=== PATIENT | female | born 1970 | race Caucasian/White ===

== ENCOUNTER 2022-01-17 13:45 | Emergency (ER) | payer OTHER ==
[~2022-01-17] VITALS: Ht 172.7 cm; Wt 113.4 kg
--- NOTE | 2022-01-17 13:46 | NUR ---
Patient to ER bed 1 to gown for evaluation. Side rails up. Report given to EDWARDO SOLANO.
--- NOTE | 2022-01-17 13:46 | NUR ---
ER at bedside examining patient.
--- NOTE | 2022-01-17 13:50 | NUR ---
Pt JESSICA ARCHER from [facility]. Pt c/o having an excrutiating headache 10/10 that radiates to her occipital lobe region and feeling very weak. Pt able to move all extremities and minimal weakness noted on left extremities. 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 There is left sided extremity drift noted as well. All cranial nerves intact. Pt is A&Ox4. Skin intact. Connected pt to bacteriologist dairy and BP at 162/101, other vitals stable. Last known well time was 2am. Pt able to answer all questions appropiately. No aphasia noted. No slurred speech. Allergic to lisinopril. Has hx of Migraines, DM, HTN, Hyperlipidemia. Had a right foot surgery recently. Bed in lowest position. Safety checks in place.
--- NOTE | 2022-01-17 13:55 | NUR ---
Patient transported to radiology via gurney, accompanied by RN and cook chill technician.
--- NOTE | 2022-01-17 14:01 | NUR ---
bicycle repair technician at bedside.
--- NOTE | 2022-01-17 14:02 | NUR ---
Accucheck done and results were 143.
[2022-01-17 14:06] VITALS: BP_SYST 154
--- NOTE | 2022-01-17 14:10 | NUR ---
TELE NEURO ASSESSING PT.
--- NOTE | 2022-01-17 14:15 | NUR ---
X-Ray being done at bedside.
--- NOTE | 2022-01-17 14:20 | NUR ---
EKG being done at bedside.
[2022-01-17 14:24] LABS: BASOPHILS % (AUTO) 0.4 % (0.0-2.0); EOSINOPHILS # (AUTO) 0.1 K/uL (0.0-0.4); EOSINOPHILS % (AUTO) 1.9 % (0.0-4.0); HEMATOCRIT 39.5 % (36-48); HEMOGLOBIN 13.3 g/dL (12.0-16.0); LYMPHOCYTES # (AUTO) 1.7 K/uL (1.0-5.5); LYMPHOCYTES % (AUTO) 26.7 % (20.5-51.5); MEAN CORPUSCULAR HEMOGLOBIN 29 pg (27-31); MEAN CORPUSCULAR HGB CONC 34 % (32-36); MEAN CORPUSCULAR VOLUME 85 fL (79.0-98.0); MONOCYTES # (AUTO) 0.3 K/uL (0.0-1.0); MONOCYTES % (AUTO) 4.5 % (1.7-9.3); NEUTROPHILS # (AUTO) 4.1 K/uL (1.8-7.7); NEUTROPHILS % (AUTO) 66.5 % (40.0-70.0); PLATELET COUNT (AUTO) 207 K/uL (130-430); RED BLOOD CELL COUNT(AUTO) 4.67 MIL/uL (4.2-6.2); RED CELL DISTRIBUTION WIDTH 13.4 % (9.0-15.0); WHITE BLOOD COUNT (AUTO) 6.2 K/uL (4.8-10.8)
--- NOTE | 2022-01-17 14:27 | NUR ---
COVID SWAB SENT TO LAB.
--- NOTE | 2022-01-17 14:31 | NUR ---
Pt states she is unable to urinate at this time.
[2022-01-17] MEDS: ATORVASTATIN 20 MG TABLET PO ONE (14:35)
[2022-01-17] MEDS: ASPIRIN 325 MG TABLET PO ONE (14:35)
--- NOTE | 2022-01-17 14:36 | NUR ---
Pt given Lipitor and Aspirin PO. Pt able to swallow appropiately no difficulty noted.
[2022-01-17 14:40] LABS: ANION GAP 11 (5-15); CALCIUM 9.4 mg/dL (8.4-11.0); CHLORIDE 103 mmol/L (98-107); CREATININE 0.67 mg/dL (0.55-1.30); GLUCOSE 150 mg/dL (70-99); POTASSIUM 3.9 mmol/L (3.5-5.1); SODIUM SERUM 141 mmol/L (136-145); UREA NITROGEN, BLOOD 14 mg/dL (8-21)
[2022-01-17 14:41] LABS: PROTHROMBIN TIME 10.1 SECS (9.5-12.5)
[2022-01-17 14:46] LABS: GFR AFRICAN AMERICAN 120 mL/min (>90)
[2022-01-17 14:54] LABS: ALANINE AMINOTRANSFERASE 44 U/L (12-78); ALBUMIN 4.1 g/dL (3.4-4.8); ASPARTATE AMINOTRANSFERASE 19 U/L (10-37); PHOSPHORUS 3.1 mg/dL (2.7-4.5); TOTAL BILIRUBIN 0.3 mg/dL (0.0-1.0)
[2022-01-17] MEDS ORDERED: IOHEXOL 350 mgI/mL, 150 ML INFUS..BTL IV ONE (14:59)
--- NOTE | 2022-01-17 15:04 | NUR ---
Patient transported to radiology via gurney, accompanied by technical agronomist.
--- NOTE | 2022-01-17 15:12 | NUR ---
Returned from radiology, back to [facility].
--- NOTE | 2022-01-17 15:20 | NUR ---
Urine collected and sent to lab.
[2022-01-17 15:44] LABS: CHOLESTEROL 225 mg/dL (<200); HDL CHOLESTEROL 61 mg/dL (>55); LDL CHOLESTEROL 137 mg/dL (<100); TRIGLYCERIDES 103 mg/dL (30-150)
[2022-01-17 15:44] LABS: BILIRUBIN,URINE NEGATIVE (NEGATIVE); BLOOD, URINE NEGATIVE (NEGATIVE); CLARITY/URINE CLEAR (CLEAR); COLOR,URINE YELLOW (YELLOW); GLUCOSE,URINE NEGATIVE (NEGATIVE); KETONES,URINE NEGATIVE (NEGATIVE); LEUKOCYTE ESTERASE ,URINE NEGATIVE (NEGATIVE); NITRITE, URINE NEGATIVE (NEGATIVE); PROTEIN URINE NEGATIVE (NEGATIVE); UROBILINOGEN,URINE 0.2 (0.2-1.0)
[2022-01-17 15:45] LABS: CHOL/HDL RATIO 3.7 (>4.5)
[2022-01-17 16:01] LABS: BARBITURATE, URINE NEGATIVE (NEG <=200); BENZODIAZEPINE, URINE NEGATIVE (NEG <=150); CANNABINOID, URINE NEGATIVE (NEG <=50); COCAINE, URINE NEGATIVE (NEG <=150); METHAMPHETAMINES SCREEN,URINE NEGATIVE (NEG <=500); OPIATE, URINE NEGATIVE (NEG <=100); PHENCYCLIDINE SCREEN,URINE NEGATIVE (NEG <=25); UR TRICYCLIC ANTIDEPRESSANTS NEGATIVE (NEG <=300); URINE AMPHETAMINE NEGATIVE (NEG <=500); URINE METHADONE NEGATIVE (NEG <=200); URINE OXYCODONE SCREEN NEGATIVE (NEG <=100); URINE PROPOXYPHENE SCREEN NEGATIVE (NEG <=300)
[2022-01-17] MEDS: ASPIRIN 81 MG TABLET(ECOTRIN) PO ONE (16:40)
[2022-01-17] MEDS ORDERED: HYDR-3908 PO (16:52)
[2022-01-17] MEDS ORDERED: NALT50TA PO (16:52)
[2022-01-17] MEDS ORDERED: OMEP-268 PO (16:52)
[2022-01-17] MEDS ORDERED: PRO20 PO (16:52)
[2022-01-17] MEDS ORDERED: CYCL10TA24 PO (16:52)
[2022-01-17] MEDS ORDERED: NEU300 PO (16:52)
[2022-01-17] MEDS ORDERED: LOSA50TA28 PO (16:52)
[2022-01-17] MEDS ORDERED: IBUP-1970 PO (16:52)
[2022-01-17] MEDS ORDERED: ONDA-8 TL (16:52)
--- NOTE | 2022-01-17 16:52 | NUR ---
Medication reconciliation completed with information provided by pt. Any prior medication reconciliation on file was reviewed and corrected.
--- NOTE | 2022-01-17 16:53 | NUR ---
Pt notified she will be getting transferred to [facility]. at bedside. Pt has no c/o.
[2022-01-17 18:12] VITALS: BP_SYST 128
--- NOTE | 2022-01-17 18:14 | NUR ---
Patient to be transferred to [facility]. Is being transferred due to higher level of care. Receiving facility has accepting physician and available space. ER physician has signed transfer form. Patient or responsible democrat has agreed to transfer and signed form. Patient belongings inventoried and will be sent with patient. Copy of nursing notes, lab reports, EKG, Physicians Orders and X-rays to be sent with patient. Report called to Schuyler SOLANO at receiving facility. Receiving physician is Dr. Marr. [facility] ambulance service has been called for transfer. ETA is [id number].
== END 2022-01-17 18:12 | disposition short-term general hospital (02) ==
LOC: SED 13:45
DX: I63.9 Cerebral infarction, unspecified (principal); G43.909 Migraine, unspecified, not intractable, without status migrainosus; I10 Essential (primary) hypertension; R53.1 Weakness; Z79.899 Other long term (current) drug therapy; Z20.822 Contact with and (suspected) exposure to COVID-19
CPT/HCPCS: 99285; 70450; 71045; 87426; 80061; 80307; 80053; 83880; 83735; 84100; 85025; 85379; 85610; 85730; 86886; 86900; 86901; 84484; 36415; 93005; 70496; 70498; 81003; 76376; Q9967